=== PATIENT | female | born 1975 | race Caucasian/White ===

== ENCOUNTER 2021-04-07 11:50 | Emergency (ER) | payer OTHER ==
[~2021-04-07] VITALS: Ht 172.7 cm; Wt 136.1 kg
[2021-04-07] MEDS ORDERED: LABETALOL HCL200 MG PO ×2 (12:25→12:26)
[2021-04-07] MEDS ORDERED: LEVOTHYROXINE300 MCG PO (12:26)
[2021-04-07] MEDS ORDERED: METFORMIN HCL1000 MG PO (12:27)
== END 2021-04-07 16:05 | disposition home or self-care (01) ==
LOC: ED 11:50
DX: K46.0 Unspecified abdominal hernia with obstruction, without gangrene (principal); I10 Essential (primary) hypertension; Z88.5 Allergy status to narcotic agent; Z88.8 Allergy status to other drugs, medicaments and biological substances; Z79.899 Other long term (current) drug therapy; Z79.84 Long term (current) use of oral hypoglycemic drugs; Z20.822 Contact with and (suspected) exposure to COVID-19
CPT/HCPCS: 74018; 74177; 80053; 81001; 83605; 83690; 84703; 85025; 99284-25; J1885; J7030; Q9967; U0003